=== PATIENT | female | born 1970 | race Caucasian/White ===

== ENCOUNTER 2021-10-06 00:11 | Day surgery (SDC) | payer BC, SELFPAY ==
[2021-09-18 15:12] VITALS: BMI 37.0
--- NOTE | 2021-10-05 14:05 | PM.HPGS ---
History of Present Illness History of Present Illness Consent: Risks, benefits, and alternatives have been discussed and questions answered. Patient agrees to proceed with procedure. Chief complaint: neoplasm screening Narrative: Adamaris Winter is a 50 year old female referred for colon cancer screening. Review of Systems Review of Systems: All systems reviewed & are unremarkable except as noted in HPI and below PMFSH Past Medical History Medical History Ankylosing spondylitis of unspecified sites in spine COVID-19 Fibromyalgia Iridocyclitis Stress incontinence Unspecified iridocyclitis Family History Family History Father Hypertension Social History Social History Smoking status: Never smoker Alcohol intake: current Drinks per week: 3 Alcohol use details: 3- 4 drinks on the weekend Substance use: never Substance use type: does not use Living arrangements: with family Spiritual care concerns: No Meds Home Medications and Allergies Home Medications Medication Instructions Recorded Confirmed Type sulfasalazine 500 mg 1.5 g PO BID #30 tabs 03/31/20 09/18/21 Rx tablet,delayed release ergocalciferol (vitamin D2) 1,250 1,250 mcg PO WEEKLY 02/08/21 09/18/21 History mcg (50,000 unit) capsule amitriptyline 25 mg tablet See Rx Instructions .Route 04/04/21 09/18/21 Rx .COMPLEX #90 tabs bupropion HCl 300 mg 24 hr tablet, See Rx Instructions .Route 04/12/21 09/18/21 Rx extended release .COMPLEX #90 tabs sodium sul 1.479 gram-potas ch See Rx Instructions PO PER PKG DIR 09/04/21 09/18/21 Rx 0.188 gram-magnes sul 0.225 gram #24 tabs tablet (Sutab) levonorgestrel 0.15 mg-ethinyl 1 tablet PO DAILY 09/18/21 09/18/21 History estradiol 30 mcg tablets,3 mos pack(91) Allergies Allergy/AdvReac Type Severity Reaction Status Date / Time amoxicillin Allergy Unknown Skin Verified 10/06/21 08:43 Reaction Exam Resp: Auscultation: clear to auscultation bilaterally Cardio: Rate: regular rate Rhythm: regular rhythm GI: GI Palp: Yes Soft to palpation and No Tenderness to palpation present (GI) Assessment and Plan Assessment and plan (1) Colon cancer screening: Code(s): Z12.11 - Encounter for screening for malignant neoplasm of colon Status: Acute Assessment and Plan: Colonoscopy with possible biopsy or polypectomy or cautery or injection of substances.
[2021-10-06 08:44] VITALS: BMI 37.0
[2021-10-06 08:45] VITALS: BP 115/50; PULSE 79; RESP 16; TEMP 36.6; O2SAT 100
[2021-10-06] MEDS: LACTATED RINGERS 1,000 ML 150 ML IV CONT (08:52)
--- NOTE | 2021-10-06 09:07 | WPDANESEPPF ---
Anes - Initial Pre Proc Eval Procedure: Operation Date: 10/06/21 09:30 Proposed Procedures p Screening Colonoscopy - Hernando Ovalles MD Date/Time: 10/06/21 09:07 Surgeon: Hernando Ovalles MD Pre Op Diagnosis: neoplasm screening Patient Data Age: 50 Gender: F Height: 1.7 m Weight: 107.2 kg Last Vital Signs Temp 97.9 F 10/06/21 08:45 Pulse 79 10/06/21 08:45 Resp 16 10/06/21 08:45 BP 115/50 L 10/06/21 08:45 Pulse Ox 100 10/06/21 08:45 O2 Del Method Room Air 10/06/21 08:45 Allergies Allergy/AdvReac Type Severity Reaction Status Date / Time amoxicillin Allergy Unknown Skin Verified 10/06/21 08:43 Reaction Home Medications Medication Instructions Recorded Confirmed Type sulfasalazine 500 mg 1.5 g PO BID #30 tabs 03/31/20 09/18/21 Rx tablet,delayed release ergocalciferol (vitamin D2) 1,250 1,250 mcg PO WEEKLY 02/08/21 09/18/21 History mcg (50,000 unit) capsule amitriptyline 25 mg tablet See Rx Instructions .Route 04/04/21 09/18/21 Rx .COMPLEX #90 tabs bupropion HCl 300 mg 24 hr tablet, See Rx Instructions .Route 04/12/21 09/18/21 Rx extended release .COMPLEX #90 tabs sodium sul 1.479 gram-potas ch See Rx Instructions PO PER PKG DIR 09/04/21 09/18/21 Rx 0.188 gram-magnes sul 0.225 gram #24 tabs tablet (Sutab) levonorgestrel 0.15 mg-ethinyl 1 tablet PO DAILY 09/18/21 09/18/21 History estradiol 30 mcg tablets,3 mos pack(91) Patient hx anesthesia problems: none Family hx anesthesia problems: none Results Review: All pre-operative results and documents have been reviewed as part of the pre-operative evaluation. [facility] Past Medical History Medical History Ankylosing spondylitis of unspecified sites in spine COVID-19 Fibromyalgia Iridocyclitis Stress incontinence Unspecified iridocyclitis Family History Family History Father Hypertension Social History Social History Smoking status: Never smoker Alcohol intake: current Drinks per week: 3 Alcohol use details: 3- 4 drinks on the weekend Substance use: never Substance use type: does not use Living arrangements: with family Spiritual care concerns: No Anes - Eval Final PreProcedure Day of Procedure 10/06/21 09:07 Patient weight: obese Heart: regular rate and rhythm Lungs: clear to auscultation Airway: Mallampati scale class II Neurological: alert and oriented Last oral intake: >/= 8 hours ASA classification: II Emergent: no Anesthetic plan: proceed Anesthesia type and monitoring: general GIVS and standard monitoring Results Review: All pre-operative results and documents have been reviewed as part of the pre-operative evaluation. Informed Consent: The patient's anesthetic plan and its attendant risks and benefits were discussed with the patient/family/POA. Questions were solicited and answers provided to the satisfaction of the patient/family/POA.
[2021-10-06 09:41] VITALS: BP 117/74; PULSE 73; RESP 19; O2SAT 96
[2021-10-06 09:51] VITALS: BP 119/57; PULSE 70; RESP 22; O2SAT 100
[2021-10-06 10:01] VITALS: BP 122/64; PULSE 68; RESP 19; O2SAT 100
== END 2021-10-06 10:08 | disposition home or self-care (01) ==
PROVIDERS: PCP Family Medicine; Visit Provider Internal Medicine Gastroenterology
PROC: 0DJD8ZZ Inspection of Lower Intestinal Tract, Via Natural or Artificial Opening Endoscopic (ICD-10-PCS; CPT 45378; principal; 2021-10-06 09:30)
DX: Z12.11 Encounter for screening for malignant neoplasm of colon (principal); K57.30 Diverticulosis of large intestine without perforation or abscess without bleeding; M79.7 Fibromyalgia; E66.9 Obesity, unspecified; Z68.37 Body mass index [BMI] 37.0-37.9, adult
CPT/HCPCS: 45378; J2704; J7120